=== PATIENT | male | born 1945 | race American Indian/Alaskan Native ===

== ENCOUNTER 2017-12-16 11:54 | Day surgery (SDC) | payer MEDICARE, OTHER ==
[~2017-12-16 11:54] MED LIST: NACL 0.9% 1000 ML 1,000 ML IV SCH
--- NOTE | 2017-12-16 17:47 | Anesthesia Consultation ---
Anesthesia Consult and Med Hx - Airway Anesthetic Teeth Evaluation: Dentures ROM Head & Neck: Adequate Mental/Hyoid Distance: Adequate Mallampati Class: Class III Intubation Access Assessment: Good - Pulmonary Exam CTA: Yes - Cardiac Exam Cardiac Exam: No Murmur - Pre-Operative Health Status ASA Pre-Surgery Classification: ASA3 Proposed Anesthetic Plan: General - Cardiovascular System Hx Hypertension: Yes - Hematic Hx Anemia: Yes
--- NOTE | 2017-12-16 17:47 | Anesthesia Day of Surgery ---
Anesthesia Day of Surgery - Day of Surgery Patient Examined: Yes Patient H&P Reviewed: Yes Patient is NPO: Yes Beta Blockers: Yes
--- NOTE | 2017-12-16 17:47 | Progress Note ---
Objective - Constitutional Vitals: Vital Signs - 12hr 12/16/17 12/16/17 14:55 15:08 Temperature 98.2 F 98.2 F Pulse Rate 64 64 Respiratory 15 15 Rate Blood Pressure 117/70 117/70 O2 Sat by Pulse 100 100 Oximetry
[2017-12-16] MEDS ORDERED: DIPRIVAN 10 MG/ML IV ONE (18:07)
--- NOTE | 2017-12-16 18:40 | Discharge Summary ---
Short Stay Discharge Plan Activity: advance as tolerated Weight Bearing Status: Weight Bear as Tolerated Diet: regular Follow up with: ADEEL COLIN MD [Primary Care Provider] - 7 Days
--- NOTE | 2017-12-16 18:40 | Operative Report ---
Operative Report Operative Report: Date: 12/16/2017 Operative Report: Date of procedure: 07/22/2017 Procedure: Esophagogastroduodenoscopy with multiple mucosal biopsies. Attending physician: Pedro Childress MD Supervisor Airplane Flight Attendant: Pedro Childress MD Indication: Patient is a 72 -year-old male who presented with a history of iron deficiency anemia, recurrent epigastric pain, heartburn and indigestion and dysphagia. An upper endoscopy is done to assess patient, so that treatment may be directed based on the findings. Consent: Informed consent was obtained after advising the patient and family regarding nature of this procedure, its indications, potential benefits as well as possible complications including but not limited to bleeding perforation and adverse reaction to medication, infection as well as other cardiopulmonary complications. An informed written and verbal consent was then obtained after due opportunity was provided for questions and answers. Monitoring: Patient was monitored continuously with pulse oximetry and electrocardiographic recordings as well as blood pressure recordings. Vital signs remained stable throughout this procedure with no untoward events. Preoperative assessment: Patient was assessed immediately prior to this procedure for capacity to tolerate monitored anesthesia care and moderate sedation as well as general anesthesia. Patient's ASA classification is 2, Mallampati class is 2, Hyomental distance is 3. Instrument: Chip Estimaten video endoscope Medications: Propofol given intravenously in divided doses. For details please refer to anesthesia records. Description of procedure: Patient was placed in the left lateral decubitus position after achieving sedation, the endoscope was introduced into the esophagus under direct vision. It was then advanced beyond the esophagus into the stomach and then beyond the stomach into the duodenum and to the second portion of the duodenum. It was subsequently withdrawn with careful inspection of all mucosal surfaces with the following findings. Findings: Patient has an irregular Z line at 39 cm. There was a small hiatal hernia seen on entering into the stomach. There was mild erythema in the gastric antrum. Biopsies of the antrum were obtained for histopathology. The duodenum was normal to second portion. Impression:.Irregular Z line. Gastric antral erythema Hiatal Hernia Plan: Continue treatment with proton pump inhibitors. Follow pathology report. Direct additional treatment based on the pathology report. Patient will be observed clinically. Additional recommendations will be made follow-up.
[2017-12-16 19:21] VITALS: BP 108/62
== END 2017-12-16 11:55 | disposition home or self-care (01) ==
LOC: GIO 11:54
PROVIDERS: ATTEND Internal Medicine Gastroenterology
DX: K29.50 Unspecified chronic gastritis without bleeding (principal); D50.9 Iron deficiency anemia, unspecified; K21.9 Gastro-esophageal reflux disease without esophagitis; K44.9 Diaphragmatic hernia without obstruction or gangrene; K31.89 Other diseases of stomach and duodenum; I10 Essential (primary) hypertension; E78.00 Pure hypercholesterolemia, unspecified; D64.9 Anemia, unspecified; Z79.82 Long term (current) use of aspirin; Z79.899 Other long term (current) drug therapy; Z87.891 Personal history of nicotine dependence; Z86.010 Personal history of colon polyps; Z98.890 Other specified postprocedural states
CPT/HCPCS: 43239; 88305; 88342; J2704; J7030